=== PATIENT | male | born 1950 ===

== ENCOUNTER 2022-11-01 04:33 | Day surgery (SDC) | payer OTHER, BC ==
[2022-10-30 11:43] VITALS: BMI 28.0
[2022-11-01] MEDS ORDERED: COCAINE HCL 4% TOPICAL SOLUTION 4 ML BOTTLE TP ONE (07:11)
[2022-11-01] MEDS ORDERED: PROPOFOL 20 ML ONE (07:35)
[2022-11-01] MEDS ORDERED: ceFAZolin SODIUM 1 GM VIAL IVPB ONE (07:55)
[2022-11-01] MEDS ORDERED: OXYMETAZOLINE 0.05% NASAL SOLUTION 15 ML BOTTLE NS ONE (08:00)
[2022-11-01] MEDS ORDERED: ROCURONIUM BROMIDE 50 MG/5 ML SYRINGE ONE (08:09)
[2022-11-01] MEDS ORDERED: LIDOCAINE 1%/EPI 1:100000 (20 ML MULTI DOSE VIAL) IJ ONE (09:00)
[2022-11-01] MEDS ORDERED: GLYCOPYRROLATE 0.2 MG/1 ML VIAL ONE (09:18)
[2022-11-01] MEDS ORDERED: NEOSTIGMINE METHYLSULFATE 0.5 MG/1 ML - 10 ML MDV ONE (09:19)
[2022-11-01] MEDS ORDERED: ONDANSETRON 4 MG/2 ML VIAL IVPUSH PRN (10:07)
[2022-11-01] MEDS ORDERED: oxyCODONE HCL 5 MG TABLET PO PRN (10:07)
[2022-11-01] MEDS ORDERED: ACETAMINOPHEN 500 MG TABLET (FP) PO ONE (12:37)
[2022-11-01] MEDS ORDERED: ACETAMINOPHEN INJECTION 100 ML IVPB ONE (12:45)
[2022-11-01] MEDS ORDERED: ACETAMINOPHEN 1000 MG/100 ML BAG IVPB ONE (13:10)
[2022-11-01 17:23] VITALS: BP 149/80; PULSE 96; RESP 22; TEMP 98
== END 2022-11-01 14:00 | disposition home or self-care (01) ==
LOC: JASU-SURG 04:33
PROVIDERS: ATTEND Otolaryngology
PROC: 097 Ear, Nose, Sinus, Dilation (ICD-10-PCS; 2022-11-01)
PROC: 099670Z Drainage of Left Middle Ear with Drainage Device, Via Natural or Artificial Opening (ICD-10-PCS; 2022-11-01)
PROC: 099570Z Drainage of Right Middle Ear with Drainage Device, Via Natural or Artificial Opening (ICD-10-PCS; 2022-11-01)
PROC: 09BL7ZZ Excision of Nasal Turbinate, Via Natural or Artificial Opening (ICD-10-PCS; 2022-11-01)
PROC: 097 Ear, Nose, Sinus, Dilation (ICD-10-PCS; principal; 2022-11-01 07:30)
DX: H65.23 Chronic serous otitis media, bilateral (principal); H68.103 Unspecified obstruction of Eustachian tube, bilateral
CPT/HCPCS: 87070; 87205; 94760